=== PATIENT | female | born 1970 | race Caucasian/White ===

== ENCOUNTER 2017-07-12 11:59 | Emergency (ER) | payer SELFPAY ==
[2017-07-12] MEDS ORDERED: PHENobarbital Sodium 65 MG/ML VIAL ONE (12:42)
[2017-07-12] MEDS ORDERED: Mag-Al Plus 1200 MG/1200 MG/120 MG/30 ML UDCUP ONE (12:44)
[2017-07-12] MEDS ORDERED: Lidocaine Viscous Sol 2% 15 ml UD Cup ONE (12:45)
[2017-07-12 13:30] LABS: #Basophils 0.1 thou/uL (0.0-0.2); #Eosinphils 0.4 thou/uL (0.0-0.7); #Lymphocytes 1.5 thou/uL (1.20-3.40); #Monocytes 0.8 thou/uL (0.11-0.59); %Basophils 1.3 % (0.0-1.0); %Eosinophils 4.3 % (0.0-10.0); %Lymphocytes 17.5 % (21.0-51.0); %Monocytes 9.2 % (0.0-10.0); %Neutrophils 67.8 % (42.0-75.0); Bilirubin Negative (Negative); Blood, Urine Trace (Negative); Clarity Clear (Clear); Glucose, Urine (Dipstick) Negative (Negative); Hemoglobin 12.9 g/dL (12.0-16.0); Leukocyte Negative (Negative); Mean Corpuscular HGB CONC 31.1 g/dL (32.0-36.0); Mean Corpuscular Hemoglobin 26.9 pg (27.0-31.0); Mean Corpuscular Volume 86.5 fl (81.0-99.0); Mean Platelet Volume 6.5 fL (7.4-10.4); Nitrite Negative (Negative); Platelet Count 378 thou/uL (130-400); Protein, Urine (Dipstick) Negative (Neg-Trace); RBC Distribution Width 11.8 % (11.5-14.5); Red Blood Cell (RBC) Count 4.81 mill/uL (4.20-5.40); Urobilinogen 0.2 mg/dL (0.2-1.0); White Blood Cell (WBC) Count 8.8 thou/uL (4.8-10.8); pH, Urine 6.5 (5.0-9.0)
[2017-07-12 13:31] LABS: Specific Gravity, Urine 1.021 (1.005-1.030)
[2017-07-12 13:42] LABS: Bacteria/HPF Rare-Few HPF (None Seen); RBC/HPF 0-3 HPF (0-3); Squamous Epithelial 0-3 HPF (0-3); WBC/HPF 0-3 HPF (0-3)
[2017-07-12 13:45] LABS: ALT (SGPT) 97 U/L (8-55); AST (SGOT) 152 U/L (5-34); Albumin 3.6 g/dL (3.5-5.0); Alkaline Phosphatase 194 U/L (40-150); Anion Gap 15 mmol/L (10-20); BUN (Urea Nitrogen) 7 mg/dL (7.0-18.7); Bilirubin, Total 0.2 mg/dL (0.2-1.2); Calc. Creatinine Clearance 0 mL/min (70-130); Calcium 7.8 mg/dL (7.8-10.44); Carbon Dioxide 27 mmol/L (22-29); Chloride 106 mmol/L (98-107); Estimated GFR-MDRD Greater than 90; Globulin 3.2 g/dL (2.4-3.5); Glucose 88 mg/dL (70-105); Lipase 53 U/L (8-78); Magnesium 1.9 mg/dL (1.6-2.6); Potassium 3.8 mmol/L (3.5-5.1); Protein, Total 6.8 g/dL (6.0-8.3); Sodium 144 mmol/L (136-145)
== END 2017-07-12 14:13 | disposition home or self-care (01) ==
LOC: NAV ERS 11:59
DX: K27.9 Peptic ulcer, site unspecified, unspecified as acute or chronic, without hemorrhage or perforation (principal); K52.9 Noninfective gastroenteritis and colitis, unspecified; F31.9 Bipolar disorder, unspecified; Z79.899 Other long term (current) drug therapy
CPT/HCPCS: 80053; 81003; 81015; 83690; 83735; 85025; 99284; J2560

== ENCOUNTER 2021-08-12 10:29 | Emergency (ER) | payer BC ==
[2021-08-12 10:55] LABS: #Basophils 0.1 thou/uL (0.0-0.2); #Eosinphils 0.1 thou/uL (0.0-0.7); #Lymphocytes 1.9 thou/uL (1.20-3.40); #Monocytes 0.4 thou/uL (0.11-0.59); #Neutrophils 4.9 thou/uL (1.40-6.50); %Eosinophils 1.1 % (0.0-10.0); %Lymphocytes 25.5 % (21.0-51.0); %Neutrophils 67.4 % (42.0-75.0); Hemoglobin 14.8 g/dL (12.0-16.0); Mean Corpuscular HGB CONC 31.6 g/dL (32.0-36.0); Mean Corpuscular Hemoglobin 28.4 pg (27.0-31.0); Mean Corpuscular Volume 89.8 fL (78.0-98.0); Mean Platelet Volume 7.7 fL (7.4-10.4); Platelet Count 269 thou/uL (130-400); RBC Distribution Width 12.2 % (11.5-14.5); Red Blood Cell (RBC) Count 5.23 mill/uL (4.20-5.40); White Blood Cell (WBC) Count 7.3 thou/uL (4.8-10.8)
[2021-08-12 11:03] LABS: Prothrombin Time 13.1 sec (12.0-14.7)
[2021-08-12 11:04] LABS: PTT 32.3 sec (22.9-36.1)
[2021-08-12 11:15] LABS: ALT (SGPT) 29 U/L (8-55); AST (SGOT) 32 U/L (5-34); Albumin 4.4 g/dL (3.5-5.0); Alkaline Phosphatase 106 U/L (40-110); Anion Gap 14 mmol/L (10-20); BUN (Urea Nitrogen) 10 mg/dL (9.8-20.1); Bilirubin, Total 0.3 mg/dL (0.2-1.2); CK (CPK) 85 U/L (29-168); Calc. Creatinine Clearance 0 mL/min (70-130); Calcium 8.7 mg/dL (7.8-10.44); Carbon Dioxide 25 mmol/L (22-29); Chloride 105 mmol/L (98-107); Globulin 3.1 g/dL (2.4-3.5); Glucose 85 mg/dL (70-105); Potassium 3.9 mmol/L (3.5-5.1); Protein, Total 7.5 g/dL (6.0-8.3); Sodium 140 mmol/L (136-145)
[2021-08-12] MEDS ORDERED: Aspirin Chewable 81 MG TAB ONE (11:18)
[2021-08-12 12:52] LABS: SARS-CoV-2 NAA Rapid Test Not Detected (NotDetected)
[2021-08-12] MEDS ORDERED: Acetaminophen 500 MG TAB ONE (14:43)
== END 2021-08-12 15:26 | disposition short-term general hospital (02) ==
LOC: NAV ERS 10:29
DX: I63.9 Cerebral infarction, unspecified (principal); K21.9 Gastro-esophageal reflux disease without esophagitis; F17.210 Nicotine dependence, cigarettes, uncomplicated; Z79.899 Other long term (current) drug therapy; Z20.822 Contact with and (suspected) exposure to COVID-19
CPT/HCPCS: 36416; 70450; 70496; 70498; 80053; 82550; 84484; 85025; 85610; 85730; U0002